=== PATIENT | female | born 1950 | race Caucasian/White ===

== ENCOUNTER → 2019-06-22 14:02 | Outpatient (CLI) | payer MEDICARE, OTHER, SELFPAY ==
--- NOTE | ~2019-06-22 | MM_ITS ---
EXAMINATION: MM screening jennifer BI w gina HISTORY: Screening mammogram TECHNIQUE: Craniocaudal and mediolateral oblique 3-D tomosynthesis images were obtained and synthetic 2-D images were generated. CAD analysis was submitted and interpreted. COMPARISON: 04/07/2018, 03/22/2017, 01/21/2016 bilateral digital screening mammogram examinations BREAST PARENCHYMAL COMPOSITION: There are scattered areas of fibroglandular density. FINDINGS: There are scattered bilateral benign calcifications. Stable mild fibroglandular asymmetry. There is no evidence of suspicious mass, calcification, or architectural distortion to suggest malign dennis in either breast. There has been no suspicious interval change. IMPRESSION: 1. No mammographic evidence of malignancy. 2. Recommend routine screening mammography in one year. BI-RADS Category 2: Benign finding(s). Reviewed, dictated and finalized at location A. RUMENT/CONTROL TECHNICIAN
== END ==
DX: Z12.31 Encounter for screening mammogram for malignant neoplasm of breast (principal)
CPT/HCPCS: 77063; 77067

== ENCOUNTER → 2019-12-20 12:12 | Outpatient (CLI) | payer MEDICARE, OTHER, SELFPAY ==
--- NOTE | ~2019-12-20 | DEXA_ITS ---
Bone Density Report Name: Michelle Gallego Age: 69 Sex: Female Ethnicity: White Date of : 1950 Indication: postmenopausal osteoporosis; monitoring treatment; height loss; Referring Provider: Susanna Isaac Study: Bone densitometry was performed. Exam Date: December 20, 2019 Accession number: [id number] Bone Density: Region BMD T-score Z-score Classification AP Spine (L1-L4) 0.802 -2.2 0.0 Osteopenia Femoral Neck (Left) 0.595 -2.3 -0.4 Osteopenia Total Hip (Left) 0.762 -1.5 0.1 Osteopenia Femoral Neck (Right) 0.597 -2.3 -0.4 Osteopenia Total Hip (Right) 0.722 -1.8 -0.2 Osteopenia Total Hip Mean 0.742 -1.7 -0.1 Osteopenia World Health Organization criteria for BMD impression classify patients as: Normal (T-score at or above -1.0), Osteopenia (T-score between -1.0 and -2.5), or Osteoporosis (T-score at or below -2.5). 10-year Fracture Risk: FRAX not reported because: Treated for osteoporosis Previous Exams: Region Exam Age BMD T-score BMD Change BMD Change Date g/cm2 vs Baseline vs Previous AP Spine(L1-L4) 12/20/2019 69 0.802 -2.2 0.096 0.026* 10/28/2018 68 0.776 -2.5 0.070 0.017 10/12/2016 66 0.759 -2.6 0.053* -0.008 10/08/2014 64 0.767 -2.5 0.060* 0.045* 12/31/2010 60 0.721 -3.0 0.015 0.015 06/27/2008 57 0.706 -3.1 Total Hip(Left) 12/20/2019 69 0.762 -1.5 0.061* -0.004 10/28/2018 68 0.766 -1.4 0.065* -0.021 10/12/2016 66 0.786 -1.3 0.086* 0.026 10/08/2014 64 0.760 -1.5 0.059* 0.005 12/31/2010 60 0.756 -1.5 0.055* 0.055* 06/27/2008 57 0.701 -2.0 Total Hip(Right) 12/20/2019 69 0.722 -1.8 0.027 -0.011 10/28/2018 68 0.733 -1.7 0.038* -0.002 10/12/2016 66 0.735 -1.7 0.040* 0.005 10/08/2014 64 0.730 -1.7 0.035* 0.014 12/31/2010 60 0.715 -1.9 0.021 0.021 06/27/2008 57 0.695 -2.0 *Denotes significance at 95% confidence level, LSC for AP Spine = 0.022 g/cm2, LSC for Total Hip = 0.027 g/cm2 Clinical Information Provided by Patient: Is being treated for osteoporosis Has used the following medications: Boniva (i.e. ibandronate), Vitamin D Patient maximum height was 65.5 Menopause Age: 47 Drinks caffeinated beverages Onset of menses at age 9 Number of
== END ==
PROVIDERS: Visit Provider Internal Medicine Endocrinology, Diabetes & Metabolism
DX: M81.0 Age-related osteoporosis without current pathological fracture (principal); M85.88 Other specified disorders of bone density and structure, other site; M85.852 Other specified disorders of bone density and structure, left thigh; M85.851 Other specified disorders of bone density and structure, right thigh
CPT/HCPCS: 77080

== ENCOUNTER 2021-08-29 01:17 | Day surgery (SDC) | payer MEDICARE, OTHER, SELFPAY ==
[2021-08-25 14:30] VITALS: BMI 26.6
[2021-08-29 11:00] VITALS: BP 143/73; PULSE 89; RESP 16; TEMP 36.6; O2SAT 99; BMI 26.6
[2021-08-29] MEDS: LACTATED RINGERS 1,000 ML 150 ML IV CONT (11:24)
--- NOTE | 2021-08-29 11:30 | WPDHPUPDATE1 ---
History and Physical Update Update Date/Time: 08/29/21 11:30 History and Physical has been reviewed, including an updated exam of the patient. There are NO changes in the patient's condition. Risks, benefits, and alternatives have been discussed and questions answered. Patient agrees to proceed with procedure.
--- NOTE | 2021-08-29 11:39 | WPDANESEPPF ---
Anes - Initial Pre Proc Eval Procedure: Operation Date: 08/29/21 12:00 Proposed Procedures p Esophagogastroduodenoscopy - Sudheer Espinal MD Date/Time: 08/29/21 11:39 Surgeon: Sudheer Espinal MD Pre Op Diagnosis: heartburn, hiatal hernia Patient Data Age: 71 Gender: F Height: 1.63 m Weight: 70.4 kg Last Vital Signs Temp 97.8 F 08/29/21 11:00 Pulse 89 08/29/21 11:00 Resp 16 08/29/21 11:00 BP 143/73 H 08/29/21 11:00 Pulse Ox 99 08/29/21 11:00 Allergies Allergy/AdvReac Type Severity Reaction Status Date / Time No Known Allergies Allergy Unknown Verified 08/29/21 11:08 Home Medications Medication Instructions Recorded Confirmed Type cholecalciferol (vitamin D3) 25 25 mcg PO DAILY 09/22/19 08/29/21 History mcg (1,000 unit) capsule lisinopril 20 mg tablet 20 mg PO DAILY 09/22/19 08/29/21 History ibandronate 150 mg tablet 150 mg PO MONTHLY 90 Days #3 tablet 09/26/19 08/29/21 Rx Patient hx anesthesia problems: none Family hx anesthesia problems: none Results Review: All pre-operative results and documents have been reviewed as part of the pre-operative evaluation. [facility] Past Medical History Medical History (Updated 08/19/21 @ 14:24 by JULIA Wright) Hiatal hernia HTN (hypertension) Osteoporosis Surgical History Surgical History (Updated 08/19/21 @ 13:29 by Melissa Wayne MA) History of colonoscopy Hx of tubal ligation Family History Family History Other Family history of congestive heart failure Family history of primary malignant neoplasm of liver Social History Social History (Updated 08/19/21 @ 13:30 by Melissa Wayne MA) Smoking status: Former smoker Tobacco type: cigarettes Second hand tobacco smoke exposure: Yes Alcohol intake: current Alcohol use details: rarely Substance use: never Living arrangements: alone Gender identity (if verbalized by the patient): Female Spiritual care concerns: No Anes - Eval Final PreProcedure Day of Procedure 08/29/21 11:39 Patient weight: normal Heart: regular rate and rhythm Lungs: clear to auscultation Airway: Mallampati scale class II Neurological: alert and oriented Last oral intake: >/= 8 hours ASA classification: II Emergent: no Anesthetic plan: proceed Anesthesia type and monitoring: general GIVS and standard monitoring Results Review: All pre-operative results and documents have been reviewed as part of the pre-operative evaluation. Informed Consent: The patient's anesthetic plan and its attendant risks and benefits were discussed with the patient/family/POA. Questions were solicited and answers provided to the satisfaction of the patient/family/POA.
[2021-08-29 11:57] VITALS: BP 107/61; PULSE 84; RESP 16; O2SAT 96
[2021-08-29 12:07] VITALS: BP 126/74; PULSE 84; RESP 24; O2SAT 97
[2021-08-29 12:17] VITALS: BP 131/67; PULSE 83; RESP 18; O2SAT 96
== END 2021-08-29 12:25 | disposition home or self-care (01) ==
PROVIDERS: Visit Provider Internal Medicine Gastroenterology
PROC: 0DJ08ZZ Inspection of Upper Intestinal Tract, Via Natural or Artificial Opening Endoscopic (ICD-10-PCS; CPT 43235; principal; 2021-08-29 12:00)
DX: K21.00 Gastro-esophageal reflux disease with esophagitis, without bleeding (principal); Q39.4 Esophageal web; I10 Essential (primary) hypertension; M81.0 Age-related osteoporosis without current pathological fracture; Z87.891 Personal history of nicotine dependence
CPT/HCPCS: 43450; 43239; 87081; J2704; J7120